=== PATIENT | female | born 1980 | race Asian ===

== ENCOUNTER → 2017-03-03 | Outpatient (CLI) | payer MEDICAID ==
[~2017-03-03] MED LIST: FLUC100T4 PO; FLUT9.9S NS; IBUP400T PO; SULF1TAB3 PO
[2017-03-03 10:39] LABS: PATH.CAST-FLAG NOT PRESENT; SPERM-FLAG NOT PRESENT; SRC-FLAG NOT PRESENT; XTAL-FLAG NOT PRESENT; YLC-FLAG NOT PRESENT
== END | disposition home or self-care (01) ==
LOC: STAR 09:46
PROVIDERS: ATTEND Otolaryngology
DX: Z01.818 Encounter for other preprocedural examination (principal); J35.1 Hypertrophy of tonsils
CPT/HCPCS: 81001; 87077; 87086